=== PATIENT | female | born 1935 | race Caucasian/White ===

== ENCOUNTER 2017-12-27 09:58 | Outpatient (CLI) ==
--- NOTE | 2017-12-27 11:23 | MAMMO ---
EXAM: Bilateral digital screening mammogram (2-D and 3-D) History: Screening Comparison: Bilateral mammogram 01/05/2015 Findings: MLO and CC views of bilateral breasts demonstrate predominately fatty replaced breast pare nchyma. CAD was reviewed by the radiologist. Tomosynthesis was performed. Stable benign bilateral b reast calcifications. There are no dominant masses, no suspicious microcalcifications and no archite ctural distortions Impression: Benign stable mammogram. Recommend followup routine screening mammography in 1 year. BIRADS 2
== END 2017-12-27 09:59 | disposition home or self-care (01) ==
LOC: RAD 09:58
PROVIDERS: ATTEND Family Medicine
DX: Z12.31 Encounter for screening mammogram for malignant neoplasm of breast (principal)
CPT/HCPCS: 77067

== ENCOUNTER 2018-11-19 11:19 | Outpatient (CLI) | END 2018-11-19 11:20 | disposition home or self-care (01) | LOC: NONPT 11:19 | PROVIDERS: ATTEND Family Medicine | DX: J96.11 Chronic respiratory failure with hypoxia (principal); I13.0 Hypertensive heart and chronic kidney disease with heart failure and stage 1 through stage 4 chronic kidney disease, or unspecified chronic kidney disease; N18.3 Chronic kidney disease, stage 3 (moderate); D63.1 Anemia in chronic kidney disease; I50.32 Chronic diastolic (congestive) heart failure | CPT/HCPCS: 80048 ==

== ENCOUNTER 2018-12-31 09:46 | Outpatient (CLI) ==
--- NOTE | 2018-12-31 11:39 | DEXA ---
Exam: Bone Density HISTORY: 83-year-old postmenopausal white female with history of right hip fracture. Procedure: The study was performed on a [employer] FINDINGS: Left hip: A single frontal view of the left hip is adequate for interpretation. The femoral neck bone mineral density is 0.571 g/cm2. T score is -3.4. Z score is -1.5. IMPRESSION HIP: According to the standards of the World Health Organization, this patient demonstrat es osteoporosis with increased risk of insufficiency fracture.. Compared to 12/15/2013 there has bee n a 25.7% decrease in bone mineral density in the left femoral neck. FRAX World Health Organization fracture risk assessment tool places the 10-year fracture probability is 73.8 % for major osteoporotic fracture and 65.4 % for hip fracture.
--- NOTE | 2018-12-31 11:42 | MAMMO ---
EXAM: Bilateral digital screening mammogram (2-D and 3-D) History: Screening Comparison: Bilateral mammogram 12/27/2017 Findings: MLO and CC views of bilateral breasts demonstrate predominately fatty replaced breast pare nchyma. CAD was reviewed by the radiologist. Tomosynthesis was performed. Stable benign bilateral vascular and scattered calcifications. There are no dominant masses, no suspicious microcalcificatio ns and no architectural distortions Impression: Benign stable mammogram. Recommend followup routine screening mammography in 1 year. BIRADS 2, benign
== END 2018-12-31 09:47 | disposition home or self-care (01) ==
LOC: RAD 09:46
PROVIDERS: ATTEND Family Medicine
DX: Z12.31 Encounter for screening mammogram for malignant neoplasm of breast (principal); M81.0 Age-related osteoporosis without current pathological fracture